=== PATIENT | female | born 1980 | race Caucasian/White ===

== ENCOUNTER 2017-12-06 07:57 | Inpatient (IN) | payer BC ==
[~2017-12-06] VITALS: Ht 154.9 cm; Wt 63.5 kg
[~2017-12-06 07:57] MED LIST: CEFAZOLIN SOD 1 GM in D5W 50 ML IV ONE
[2017-12-06] MEDS: LR 1,000 ML IV SCH ×2 (10:09→12:05)
[2017-12-06] MEDS ORDERED: MORPHINE 4 MG/ML INJ. SYRINGE IVP PRN ×4 (10:15→17:30)
[2017-12-06] MEDS ORDERED: METOCLOPRAMIDE HCL 10 MG/2 ML VIAL IVP PRN (10:15)
[2017-12-06] MEDS ORDERED: HYDROcodone/ACETAMIN 5-325 MG TAB (NORCO/ VICODIN) PO PRN (12:15)
[2017-12-06] MEDS ORDERED: ONDANSETRON HCL 4 MG/2 ML VIAL IVP PRN (12:15)
[2017-12-06] MEDS ORDERED: OXYCODONE/ACETAMINOPHEN 5-325 TABLET PO PRN ×2 (12:15→17:30)
[2017-12-06] MEDS ORDERED: MORPHINE 4 MG/ML INJ. SYRINGE ONE (13:09)
[2017-12-06] MEDS ORDERED: KETOROLAC TROMETHAMINE 30 MG VIAL ONE (15:06)
[2017-12-06] MEDS ORDERED: KETOROLAC TROMETHAMINE 30 MG VIAL IVP ONE (15:15)
[2017-12-06] MEDS ORDERED: CEFAZOLIN 1 GM IVPB PREMIX 50 ML IV ONE (15:45)
[2017-12-06] MEDS ORDERED: OXYCODONE/ACETAMINOPHEN 5-325 TABLET ONE (16:09)
[2017-12-06 17:15] VITALS: BP_SYST 127
[2017-12-06] MEDS: MORPHINE 4 MG/ML INJ. SYRINGE IVP PRN ×2 (17:47→21:56)
[2017-12-06] MEDS ORDERED: KETOROLAC TROMETHAMINE 30 MG VIAL IM SCH (18:00)
[2017-12-06 20:30] VITALS: BP_SYST 119
[2017-12-07] MEDS: KETOROLAC TROMETHAMINE 30 MG VIAL IVP SCH ×5 (00:56→23:56)
[2017-12-07 01:19] VITALS: BP_SYST 122
[2017-12-07 08:10] VITALS: BP_SYST 106
[2017-12-07] MEDS: MORPHINE 4 MG/ML INJ. SYRINGE IVP PRN (10:01)
[2017-12-07 12:37] VITALS: BP_SYST 117
[2017-12-07] MEDS: OXYCODONE/ACETAMINOPHEN 5-325 TABLET PO PRN ×2 (12:59→18:27)
[2017-12-07] MEDS ORDERED: PROMETHAZINE HCL 25 MG/ML AMP IM PRN (13:00)
[2017-12-07 13:40] LABS: BASOPHILS # (AUTO) 0.1 K/uL (0.0-0.2); BASOPHILS % (AUTO) 0.6 % (0.0-2.0); EOSINOPHILS # (AUTO) 0.1 K/uL (0.0-0.4); EOSINOPHILS % (AUTO) 0.5 % (0.0-4.0); HEMATOCRIT 33.5 % (36-48); HEMOGLOBIN 11.3 g/dL (12.0-16.0); LYMPHOCYTES # (AUTO) 1.8 K/uL (1.0-5.5); LYMPHOCYTES % (AUTO) 14.8 % (20.5-51.5); MEAN CORPUSCULAR HEMOGLOBIN 31 pg (27-31); MEAN CORPUSCULAR HGB CONC 34 % (32-36); MEAN CORPUSCULAR VOLUME 92 fL (79.0-98.0); MONOCYTES # (AUTO) 0.8 K/uL (0.0-1.0); MONOCYTES % (AUTO) 6.2 % (1.7-9.3); NEUTROPHILS # (AUTO) 9.3 K/uL (1.8-7.7); NEUTROPHILS % (AUTO) 77.9 % (40.0-70.0); PLATELET COUNT (AUTO) 178 K/uL (130-430); RED BLOOD CELL COUNT(AUTO) 3.65 MIL/uL (4.2-6.2); RED CELL DISTRIBUTION WIDTH 13.2 % (9.0-15.0); WHITE BLOOD COUNT (AUTO) 12.1 K/uL (4.8-10.8)
[2017-12-07] MEDS: SIMETHICONE 80 MG TAB.CHEW PO SCH ×3 (14:27→21:38)
[2017-12-07] MEDS: MEPERIDINE HCL/PF 100 MG/ML AMP IM PRN (14:29)
[2017-12-07 16:58] VITALS: BP_SYST 112
[2017-12-07 21:00] VITALS: BP_SYST 105
[2017-12-08] VITALS: BP_SYST 96
[2017-12-08] MEDS: KETOROLAC TROMETHAMINE 30 MG VIAL IVP SCH ×2 (06:05→12:06)
[2017-12-08 08:25] VITALS: BP_SYST 106
[2017-12-08] MEDS: MEPERIDINE HCL/PF 100 MG/ML AMP IM PRN (10:49)
[2017-12-08] MEDS: SIMETHICONE 80 MG TAB.CHEW PO SCH (10:49)
[2017-12-08 11:52] VITALS: BP_SYST 113
[2017-12-08 12:39] VITALS: BP_SYST 113
== END 2017-12-08 13:20 | disposition home or self-care (01) | DRG 743 ==
LOC: SMU 07:57 → SDS 07:57 → SMU 17:37 → SDS 12-07 18:30 → SMU 12-07 18:31
PROVIDERS: ADMIT Specialist; ATTEND Specialist
PROC: 0UT9FZZ Resection of Uterus, Via Natural or Artificial Opening With Percutaneous Endoscopic Assistance (ICD-10-PCS; principal; 2017-12-07)
PROC: 0UT04ZZ Resection of Right Ovary, Percutaneous Endoscopic Approach (ICD-10-PCS; 2017-12-07)
PROC: 0UB74ZZ Excision of Bilateral Fallopian Tubes, Percutaneous Endoscopic Approach (ICD-10-PCS; 2017-12-07)
PROC: 0TJB8ZZ Inspection of Bladder, Via Natural or Artificial Opening Endoscopic (ICD-10-PCS; 2017-12-07)
PROC: 8E0W7CZ Robotic Assisted Procedure of Trunk Region, Via Natural or Artificial Opening (ICD-10-PCS; 2017-12-07)
DX: N80.0 Endometriosis of uterus (principal); M54.9 Dorsalgia, unspecified; N92.0 Excessive and frequent menstruation with regular cycle; N83.11 Corpus luteum cyst of right ovary; N94.6 Dysmenorrhea, unspecified
CPT/HCPCS: 36415; 76830-TC; 76857; 85025; 87081; 88305; 88307; C1727; E0190; J0690; J1885; J2175; J2270; J2550; J7060; J7120